=== PATIENT | female | born 1950 | race Caucasian/White ===

== ENCOUNTER → 2020-01-17 15:16 | Outpatient (POV) | payer MEDICARE, BC, SELFPAY ==
[2020-01-17 15:26] VITALS: BMI 27.8
--- NOTE | 2020-01-18 07:42 | HMH.VVPMSO ---
[facility] Virtual Visit SOAP Consent for virtual visit:: With the recent concerns about the COVID-19, we are trying to minimize exposure to you by shifting to telehealth appointments whenever possible. It restricts me from seeing you in person, but the trade off is protecting you during this pandemic. Can you see and hear me okay, and do you consent to this option? If not, I would be happy to see if we can reschedule your appointment in the future, when feasible. Has patient consented to this virtual visit?: Yes Subjective:: Patient is a pleasant 69-year-old white male who presents today for medication refills. He is being treated for low back pain with lumbar radiculopathy symptoms along with postlaminectomy syndrome of the lumbar spine. He is currently on [place] 10 mg 1 tab p.o. twice daily and tramadol 50 mg 1 tab p.o. 4 times daily. He denies any side effects to his medication and states that it helps up to 80%. He takes it only as needed. He does continue anti-inflammatories and a home stretching program. He does winter in [place] however he is recently returned. [facility] #[id number] reviewed and appropriate. Patient's urine drug screens have been appropriate in the past. He rates his pain today a 5 out of 10 mostly in his low back and legs ROS General: no recent weight change, no fever, no sleep disturbances Respiratory: no cough, no shortness of air, no recurring pulmonary infections Cardiovascular/Peripheral Vascular: No chest pain, No palpitations, no edema, no shortness of breath. Gastrointestinal: no new onset incontinence, normal bowel movements reported Genitourinary: no new onset incontinence Musculoskeletal: Back pain, leg pain Psychiatric: normal mood/ affect, Neurological: [denies new onset weakness in extremities], [denies new onset balance issues] Objective:: Physical exam: Constitutional: Healthy appearing, well-developed, alert, in no acute distress Psychiatric: Judgment and insight intact, Alert and oriented x4 Mood and affect: Mood normal, affect appropriate Head and face: Inspection: Normocephalic atraumatic, extraocular movement intact Respiratory: Breathing nonlabored, nondyspneic Cardiovascular: No cyanosis, clubbing, or edema observed Skin: Head and neck: Skin with no lesions or rash observed Gait: Able to walk without assistive device: Able to heel and toe walk Neurologic: Sensation grossly intact per patient Musculoskeletal: Decreased range of motion lumbar spine noted on video Assessment:: Degenerative disc disease lumbar spine lumbar radiculopathy along with postlaminectomy syndrome Plan:: We will refill his [place] 10 mg 1 tab p.o. twice daily and his tramadol 50 mg 1 tab p.o. 4 times daily. We will give him 1 prescription. We will follow-up with him in several months reassess his symptoms at that time he has been instructed to call the office if he has any issues prior to his next appointment. Patient has been prescribed a controlled substance after being counseled on the medication, medication safety, and possible side effects. JOSE M report has been obtained and reviewed prior to prescription and found to be appropriate. Opioid contract was reviewed and signed by the patient, and that they have agreed to all of the terms set forth by our compliance program. This encounter was performed as a telemedicine visit via secure 2 way video and audio to minimize risk and transmission of Covid-19. The patient and we understand the limitations of a telemedicine visit including inability to check reflexes, possibly missing subtle findings on physical exam. Alternative options were presented to the patient and the patient elected to proceed with the visit. We specifically discussed risk factors for Covid-19 including age, heart or lung disease, diabetes, immunosuppression and travel. We also discussed that NSAIDs may worsen Covid-19 infection symptoms and that they should not be used to treat Covid-19 symptoms.
== END ==
PROVIDERS: Visit Provider Clinical Nurse Specialist Family Health
DX: M51.16 Intervertebral disc disorders with radiculopathy, lumbar region (principal); M96.1 Postlaminectomy syndrome, not elsewhere classified
CPT/HCPCS: 99212